=== PATIENT | female | born 1985 | race Caucasian/White ===

== ENCOUNTER 2019-06-16 11:02 | Emergency (ER) | payer SELFPAY ==
[~2019-06-16] VITALS: Ht 160 cm; Wt 54.4 kg
[2019-06-16 11:12] VITALS: BP 129/106; Ht 160 cm; Wt 54.4 kg
== END 2019-06-16 12:38 | disposition home or self-care (01) ==
LOC: ED 11:02
DX: B34.9 Viral infection, unspecified (principal); Z20.828 Contact with and (suspected) exposure to other viral communicable diseases
CPT/HCPCS: J1885

== ENCOUNTER 2019-10-30 09:28 | Emergency (ER) | payer OTHER, MEDICAID ==
[~2019-10-30] VITALS: Ht 160 cm; Wt 54.4 kg
[2019-10-30 09:36] VITALS: Ht 160 cm; Wt 54.4 kg
[2019-10-30 10:23] VITALS: BP 128/78
== END 2019-10-30 10:23 | disposition home or self-care (01) ==
LOC: ED 09:28
DX: G43.909 Migraine, unspecified, not intractable, without status migrainosus (principal); R55 Syncope and collapse; F17.210 Nicotine dependence, cigarettes, uncomplicated; V49.9XXA Car occupant (driver) (passenger) injured in unspecified traffic accident, initial encounter; Y93.89 Activity, other specified; Y92.89 Other specified places as the place of occurrence of the external cause; Y99.8 Other external cause status
CPT/HCPCS: Q0162